=== PATIENT | male | born 2005 ===

== ENCOUNTER 2024-01-31 18:34 | Emergency (ER) | payer SELFPAY ==
[~2024-01-31] VITALS: Ht 170.2 cm; Wt 81.6 kg
[2024-01-31] MEDS ORDERED: ORPH100T4 PO (19:52)
[2024-01-31] MEDS: ketOROlac 60 MG VIAL (30MG/ML) IM ONE (20:42)
[2024-01-31 21:50] VITALS: BP 116/73; PULSE 70; RESP 18; TEMP 98.2; O2SAT 98
== END 2024-01-31 21:52 | disposition home or self-care (01) ==
LOC: EDH 18:34
DX: S13.4XXA Sprain of ligaments of cervical spine, initial encounter (principal); Z79.899 Other long term (current) drug therapy; V49.40XA Driver injured in collision with unspecified motor vehicles in traffic accident, initial encounter; Y93.89 Activity, other specified; Y92.488 Other paved roadways as the place of occurrence of the external cause; Y99.8 Other external cause status
CPT/HCPCS: 72040; J1885